=== PATIENT | female | born 2000 | race Caucasian/White ===

== ENCOUNTER 2024-10-14 13:43 | Emergency (ER) | payer BC ==
[~2024-10-14] VITALS: Ht 175.3 cm; Wt 79.4 kg
[2024-10-14] MEDS: LIDOCAINE HCL 1% 20 ML VIAL TP ONE (14:00)
[2024-10-14] MEDS ORDERED: TDAP DIPH,PERTUSS,TET VAC/PF 0.5 ML DISP.SYRIN IM ONE ×2 (14:00→14:14)
[2024-10-14] MEDS ORDERED: LIDOCAINE HCL 1% 20 ML VIAL ONE (14:09)
[2024-10-14] MEDS ORDERED: NEOMY/BACITRA/POLYMYXIN B OINT UD PACKET TP ONE (14:14)
[2024-10-14] MEDS ORDERED: HYDROCODONE/APAP 10-325 MG TABLET ONE (15:08)
[2024-10-14] MEDS: HYDROCODONE/APAP 10-325 MG TABLET PO ONE (15:13)
[2024-10-14] MEDS ORDERED: CEPH500C2 PO (15:15)
[2024-10-14] MEDS ORDERED: HYDR-3972 PO (15:15)
[2024-10-14] MEDS: NEOMY/BACITRA/POLYMYXIN B OINT UD PACKET TP ONE (15:26)
[2024-10-14 16:03] VITALS: BP 128/83; TEMP 97.9; O2SAT 97
== END 2024-10-14 16:03 | disposition home or self-care (01) ==
LOC: ER 13:43
DX: S61.211A Laceration without foreign body of left index finger without damage to nail, initial encounter (principal); F12.90 Cannabis use, unspecified, uncomplicated; F19.10 Other psychoactive substance abuse, uncomplicated; Z88.7 Allergy status to serum and vaccine; W26.8XXA Contact with other sharp object(s), not elsewhere classified, initial encounter; Y93.89 Activity, other specified; Y92.89 Other specified places as the place of occurrence of the external cause; Y99.8 Other external cause status
CPT/HCPCS: 90715; A4606; A4663; J3490